=== PATIENT | male | born 1985 | race Hispanic/Latino ===

== ENCOUNTER 2024-04-12 10:54 | Emergency (ER) | payer SELFPAY ==
[2024-04-12 11:00] VITALS: BP 146/100
--- NOTE | 2024-04-12 11:20 | ED.GENMED ---
History of Present Illness
General
Chief Complaint: Male Genito-Urinary Symptoms
Time Seen by Provider: 04/12/24 11:19
Travel History
Have you had any contact with someone who has COVID-19?: No
Do you have any symptoms of coronavirus? Fever > 100 degrees, chills, cough, shortness of breath, sore throat, loss of taste or smell, muscle aches, or headache?: No
History of Present Illness
History of Present Illness:
HPI: Patient presents with scrotal/testicular pain. This has been ongoing for the last few days. There is some discomfort with urination. He also reports some 'leakage through the scrotum' to the point that he needs to use a paper towel in the
area.
EXAM:
GENERAL: Well appearing in mild distress
HEENT: Moist oral mucosa
CARDIOVASCULAR: No murmurs, normal heart rate, regular rhythm, No chest wall tenderness
PULMONARY: No respiratory distress, breath sounds are clear and equal
ABDOMEN: Soft with no peritoneal signs, no tenderness
: There is marked greater than softball sized scrotum with scrotal edema, could not clearly palpate the testicles, minimal erythema, no discharge from the urethral meatus
NEUROLOGIC: Excellent strength all extremities, no coordination deficits
PSYCHIATRIC: Appropriate mental status, normal insight and judgement
EXTREMITIES: Nontender, no edema, moves all extremities equally
SKIN: No rash, no lesions
TIME OF INITIAL ENCOUNTER: 11:20 AM
NUMBER AND COMPLEXITY OF PROBLEMS ADDRESSED AT THE ENCOUNTER
� Chronic conditions affecting care: Denies past medical history
� Acute Exacerbation and/or Progression of Chronic Illness: This is an acute problem
� Differential Diagnosis includes: Varicocele, hydrocele, inguinal hernia, testicular torsion less likely,
AMOUNT AND/OR COMPLEXITY OF DATA TO BE REVIEWED AND ANALYZED
� I performed an independent evaluation of and my interpretation is:
EKG:
CT:
X-rays:
Laboratory Studies: Urinalysis shows 1+ leukocyte esterase, CBC and chemistries unremarkable, BNP less than 20
Other: Ultrasound imaging shows moderate scrotal wall edema along with small bilateral hydroceles with no testicular or epididymal abnormality
� Review of other/old records: I reviewed records. The patient was admitted here in 2014 with an intractable headache
� Clinical information was obtained by an independent historian: None needed
� Prescriptions/Medications Considered but not given:
� Further testing considered but not performed:
RISK OF COMPLICATIONS AND/OR MORBIDITY OR MORTALITY OF PATIENT MANAGEMENT
� Social determinants of health affecting care: Lives at home
� Discussion with other providers: I discussed the case with Dr. Salcido. He recommends low-dose Lasix and doxycycline. He also requests CT imaging for further evaluation of possible lymphatic obstruction.
� Escalation of care including admission/observation vs risk of discharge considered: The patient appears uncomfortable. Ultrasound imaging obtained
Past History
Past History
ED Past Medical History: None
ED Past Surgical History: None
Social History
Tobacco: Non-smoker
Alcohol: Occasional
Drug: None
Living: with family
Family History
Family History: Negative Diabetes, Hypertension or CAD
Phy Exam
Physical Exam
Physical Exam:
See HPI
Course
Orders/Labs/Results
Orders:
Orders
04/12/24 11:01
US Scrotum Urgent
Comment:
Reason For Exam: pain and swelling B/L testicles
04/12/24 12:48
Urinalysis Reflex To Culture Urgent
Date Specimen was Collected: 04/12/24
Time Specimen was Collected: 11:28
Urine Microscopic Reflex Cult Urgent
Urine Culture Urgent
CHELY Source: U
Specimen Description:
Date Specimen was Collected: 04/12/24
Time Specimen was Collected: 11:28
04/12/24 13:28
CT Abd/pel Without Iv Or Oral Urgent
Comment:
Reason For Exam: scrotal edema severe ?lymphatic obstruction Omari
04/12/24 13:29
Doxycycline [Vibramycin] 100 mg PO NOW STA
Furosemide [Lasix] 20 mg PO NOW STA
04/12/24 13:51
Complete Blood Count/With Diff Urgent
Comprehensive Metabolic Panel Urgent
NT-proBNP Urgent
04/12/24 13:56
Vital Signs- Treatment ONCE
Frequency: Once
04/12/24 14:09
Lyme Progressive Urgent
Abnormal Lab Results
04/12/24 04/12/24
12:48 13:51
MCH 31.5 H pg
(27.0-31.0)
Abs Immat Gran (auto) 0.1 H 10^3/uL
(0-0.05)
Absolute Lymphs (auto) 1.0 L 10^3/uL
(1.2-3.4)
Immature Gran % 0.7 H %
(0-0.5)
Lymphocytes % 14.1 L %
(20.5-51.1)
Eosinophils % 7.9 H %
(0-6)
Leukocyte Esterase Rfl 1+ A
(Negative)
Urine Bacteria (Reflex) Few A
(Negative)
04/12/24 13:51
04/12/24 13:51
Vital Signs
Initial and Last Documented VS:
Initial Vital Signs
Temp Pulse Resp BP Pulse Ox
98.3 F 78 18 146/100 99
04/12/24 11:00 04/12/24 11:00 04/12/24 11:00 04/12/24 11:00 04/12/24 11:00
Last Documented Vital Signs
Temp Pulse Resp BP Pulse Ox
98.3 F 73 18 128/71 99
04/12/24 11:00 04/12/24 16:19 04/12/24 16:19 04/12/24 16:19 04/12/24 16:19
*Critical Care Note
Total Time (30-74mins, 75-104mins- exclusive of procedures): Not Applicable
ED Attending Note
-
Portions of this chart may have been created with voice recognition software.� Occasional wrong word or��sound alike� substitutions may have occurred due to the inherent limitations of voice recognition software.
Discharge Plan
Departure
Patient Disposition: Home (Routine Discharge)
Date of Disposition: 04/12/24
Time of Disposition: 16:14
Patient with high blood pressure during this ER visit?: No
Discharge Problem:
Scrotal edema
Instructions: Swelling
Prescriptions:
New
doxycycline monohydrate 100 mg capsule
100 mg PO BID Qty: 20 0RF
furosemide 20 mg tablet
20 mg PO DAILY Qty: 10 0RF
No Action
hydrocodone-acetaminophen [Vicodin] 1 EACH tablet
1 tab PO Q6HPRN PRN (Reason: pain)
lisinopril [Zestril] 5 MG tablet
2.5 mg PO DAILY Qty: 30 0RF
Rx Instructions:
Do not take it if your BP <130
cefuroxime axetil [Ceftin] 500 MG tablet
500 mg PO BID Qty: 10 0RF
Referrals:
Jay Salcido Jr., MD [Active] - Follow up in 2-3 days
UNKNOWN - PT DOES,NOT KNOW [Family Provider] -
Activity Restrictions/Additional Instructions:
I spoke to Dr. Salcido, the on-call urologist; we recommend that you try low-dose water pill (furosemide) as well as doxycycline for the possibility of infection. Call Dr. Salcido's office for follow-up.
Interventions
Interventions:
*Risk Screen - Suicide Last Done: 04/12/24 11:29
*General Assessment Last Done: 04/12/24 11:29
*Neglect/Abuse Screening Last Done: 04/12/24 11:29
ED- Fall Risk Assessment Last Done: 04/12/24 11:29
*ED COVID-19 Vaccine History Last Done: 04/12/24 11:00
*Nursing Disposition Last Done: 04/12/24 16:20
ED-Male Genitourinary Assessment Last Done: 04/12/24 11:29
Discharge Date and Time
Discharge Date/Time: 04/12/24 16:36
Print Language: MALTESE
[2024-04-12 13:13] LABS: Urine Albumin Negative (Neg - Trace); Urine Bilirubin Negative (Negative); Urine Character Clear (Clear); Urine Color Yellow; Urine Glucose Negative (Negative); Urine Ketone Negative (Negative); Urine Leukocyte 1+ (Negative); Urine Nitrite Negative (Negative); Urine Occult Blood Negative (Negative); Urine Specific Gravity 1.015 (<1.030); Urine Urobilinogen Negative (Neg - 1+)
[2024-04-12 13:29] LABS: Urine Red Blood Cell 0-2 /HPF (0-2)
[2024-04-12 13:32] LABS: Urine Bacteria Few (Negative)
[2024-04-12 14:03] VITALS: BP 135/72
[2024-04-12] MEDS: LASIX 20 MG PO (14:04)
[2024-04-12] MEDS: VIBRAMYCIN 100 MG PO (14:04)
[2024-04-12 14:17] LABS: % Basophils 0.4 % (0-2); % Eosinophils 7.9 % (0-6); % Immature Granulocytes 0.7 % (0-0.5); % Lymphocytes 14.1 % (20.5-51.1); % Monocytes 7.4 % (1.7-9.3); % Neutrophils 69.5 % (42.2-75.2); Absolute Eosinophils 0.6 10^3/uL (0-0.7); Absolute Immature Granulocytes 0.1 10^3/uL (0-0.05); Absolute Monocytes 0.5 10^3/uL (0.1-0.6); Absolute Neutrophils 4.9 10^3/uL (1.4-6.5); Hematocrit 41.7 % (39.0-52.0); Hemoglobin 15.2 g/dL (13.0-18.0); Mean Corp Hgb Conc. 36.5 g/dL (33.0-37.0); Mean Corpuscular Hgb 31.5 pg (27.0-31.0); Mean Corpuscular Volume 86.3 fL (80.0-94.0); Mean Platelet Volume 9.2 fL (7.4-10.4); Nucleated Red Blood Cells % 0 % (-); Platelet Count 244 10^3/uL (130-400); Red Blood Cell Count 4.83 10^6/uL (4.70-6.10)
[2024-04-12 14:38] LABS: ALT (SGPT) 46 U/L (0-50); AST (SGOT) 36 U/L (17-59); Albumin 4.1 g/dl (3.5-5.0); Alkaline Phosphatase 79 U/L (38-126); Blood Urea Nitrogen 15 mg/dl (9-20); Calcium 9.2 mg/dl (8.4-10.2); Carbon Dioxide 26 mmol/L (22-30); Chloride 106 mmol/L (98-107); Glucose 93 mg/dl (70-99); Potassium 4.2 mmol/L (3.5-5.1); Sodium 137 mmol/L (135-145); Total Bilirubin 0.7 mg/dl (0.2-1.3); Total Protein 6.8 g/dl (6.3-8.2); eGFR > 60.00
[2024-04-12 14:46] LABS: NT-proBNP < 20.0 pg/ml
[2024-04-12 15:20] VITALS: BP 133/78
[2024-04-12 16:19] VITALS: BP 128/71
[2024-04-15 14:57] LABS: Lyme Antibody Screen, EIA Negative (Negative)
== END 2024-04-12 16:36 | disposition home or self-care (01) ==
LOC: EMR 10:54
PROVIDERS: EMERGENCY PHYSICIAN Emergency Medicine
DX: N50.89 Other specified disorders of the male genital organs (principal)
CPT/HCPCS: 99285; 74176; 76870; 80053; 81003; 81015; 83880; 85025; 86618; 87086; 93976